=== PATIENT | female | born 1975 | race Caucasian/White ===

== ENCOUNTER 2017-01-19 15:53 | Emergency (ER) | payer OTHER, SELFPAY ==
[2017-01-19 16:14] LABS: Bilirubin Negative (Negative); Blood, Urine Trace (Negative); Clarity Clear (Clear); Glucose, Urine (Dipstick) Negative (Negative); Leukocyte Negative (Negative); Nitrite Negative (Negative); Protein, Urine (Dipstick) Negative (Neg-Trace); Urobilinogen 0.2 mg/dL (0.2-1.0)
[2017-01-19 16:18] LABS: Bacteria/HPF None Seen HPF (None Seen); Pregnancy Test - Urine (BHCG) NEGATIVE (NEGATIVE); Pregu Control Background? CLEAR/WHITE (CLR/WHITE); Pregu Control Bar Appear? YES (CONTROL BAR); RBC/HPF 0-3 HPF (0-3); Squamous Epithelial 0-3 HPF (0-3); WBC/HPF 0-3 HPF (0-3)
[2017-01-19] MEDS ORDERED: traMADol HCl 50 MG TAB ONE (16:21)
[2017-01-19] MEDS ORDERED: Ketorolac Tromethamine 60 MG/2 ML VIAL ONE (16:21)
== END 2017-01-19 16:37 | disposition home or self-care (01) ==
LOC: MADERS 15:53
DX: N20.0 Calculus of kidney (principal); R31.9 Hematuria, unspecified; F17.210 Nicotine dependence, cigarettes, uncomplicated
CPT/HCPCS: 81003; 81015; 81025; 96372; J1885

== ENCOUNTER 2017-04-12 11:52 | Outpatient (CLI) | payer OTHER ==
--- NOTE | 2017-04-12 16:15 | RAD ---
LUMBAR SPINE RADIOGRAPHS 3 VIEWS: DATE: 04/12/17. PROVIDED CLINICAL HISTORY: Back pain. FINDINGS: Four [id number] lumbar-type vertebral bodies were present with presumed sacralization of L5. L umbar alignment appears normal. Vertebral body heights appear preserved. Minimal degenerative disk changes are seen. Calcifications overlie the left kidney presumably reflecting renal calculi. IMPRESSION: 1. No evidence for an acute osseous abnormality. 2. Left nephrolithiasis. POS: [facility]
--- NOTE | 2017-04-12 16:45 | RAD ---
LEFT KNEE RADIOGRAPHS THREE VIEWS: Date: 04-12-17 Provided Clinical History: Left knee pain. FINDINGS: Post-operative changes of ACL reconstruction are demonstrated. There is no evidence for fracture or other acute osseous abnormality. Alignment appears anatomic. Joint spaces appear preserved. No evide nce for knee joint capsular distention. There is a 6 mm ossific focus which projects cephalad to the lateral aspect of the tibial eminence which could reflect an intraarticular body. IMPRESSION: 1. No evidence for acute osseous abnormality or significant arthropathy. 2. Possible intraarticular body. POS: [facility]
== END 2017-04-12 11:53 | disposition home or self-care (01) ==
LOC: MADRAD 11:52
PROVIDERS: ATTEND Family Medicine
DX: M25.562 Pain in left knee (principal); M46.1 Sacroiliitis, not elsewhere classified; N20.0 Calculus of kidney
CPT/HCPCS: 72100

== ENCOUNTER 2017-06-28 09:20 | Outpatient (CLI) | payer OTHER ==
[2017-06-28 10:02] LABS: #Basophils 0.1 thou/uL (0.0-0.2); #Eosinphils 0.2 thou/uL (0.0-0.7); #Lymphocytes 1.3 thou/uL (1.20-3.40); #Monocytes 0.4 thou/uL (0.11-0.59); #Neutrophils 5.6 thou/uL (1.40-6.50); %Basophils 0.8 % (0.0-1.0); %Eosinophils 2.3 % (0.0-10.0); %Lymphocytes 17.2 % (21.0-51.0); %Monocytes 5.3 % (0.0-10.0); %Neutrophils 74.4 % (42.0-75.0); Hemoglobin 14.2 g/dL (12.0-16.0); Mean Corpuscular HGB CONC 31.7 g/dL (32.0-36.0); Mean Corpuscular Hemoglobin 28.3 pg (27.0-31.0); Mean Corpuscular Volume 89.3 fl (81.0-99.0); Mean Platelet Volume 10.1 fL (7.4-10.4); Platelet Count 189 thou/uL (130-400); RBC Distribution Width 13.4 % (11.5-14.5); Red Blood Cell (RBC) Count 5.01 mill/uL (4.20-5.40); White Blood Cell (WBC) Count 7.5 thou/uL (4.8-10.8)
[2017-06-28 10:25] LABS: ALT (SGPT) 19 U/L (8-55); AST (SGOT) 18 U/L (5-34); Alkaline Phosphatase 79 U/L (40-150); Anion Gap 14 mmol/L (10-20); BUN (Urea Nitrogen) 6 mg/dL (7.0-18.7); Bilirubin, Total 0.5 mg/dL (0.2-1.2); Calc. Creatinine Clearance 0 mL/min (70-130); Carbon Dioxide 26 mmol/L (22-29); Chloride 104 mmol/L (98-107); Estimated GFR-MDRD 90; Globulin 2.8 g/dL (2.4-3.5); Glucose 107 mg/dL (70-105); Lipase 14 U/L (8-78); Potassium 3.5 mmol/L (3.5-5.1); Protein, Total 6.8 g/dL (6.0-8.3); Sodium 140 mmol/L (136-145)
== END 2017-06-28 09:21 | disposition home or self-care (01) ==
LOC: MADLABBHPM 09:20
PROVIDERS: ATTEND Family Medicine
DX: R10.13 Epigastric pain (principal)
CPT/HCPCS: 36415; 80053; 83690; 85025; 86677

== ENCOUNTER 2017-07-07 16:16 | Outpatient (CLI) | payer OTHER | END 2017-07-07 16:17 | disposition home or self-care (01) | LOC: MADEKG 16:16 | PROVIDERS: ATTEND Family Medicine | DX: R07.9 Chest pain, unspecified (principal); R00.1 Bradycardia, unspecified | CPT/HCPCS: 93005; 93010 ==

== ENCOUNTER 2018-02-14 09:36 | Emergency (ER) | payer OTHER ==
[2018-02-14] MEDS ORDERED: Ondansetron ODT 4 MG TAB ONE (10:04)
[2018-02-14 10:06] LABS: Clarity Clear (Clear)
[2018-02-14 10:12] LABS: Leukocyte Unable to Interpret (Negative)
[2018-02-14 10:13] LABS: Bilirubin Unable to Interpret (Negative); Glucose, Urine (Dipstick) Unable to Interpret mg/dL (Negative); Nitrite Unable to Interpret (Negative); Protein, Urine (Dipstick) Unable to Interpret mg/dL (Neg-Trace); Urobilinogen UNABLE TO INTERPRET mg/dL (0.2-1.0)
[2018-02-14 10:15] LABS: RBC/HPF 0-3 HPF (0-3)
[2018-02-14 10:16] LABS: Bacteria/HPF Rare-Few HPF (None Seen); Squamous Epithelial 0-3 HPF (0-3)
[2018-02-14 10:18] LABS: Pregnancy Test - Urine (BHCG) Negative (Negative); Pregu Control Bar Appear? YES (CONTROL BAR); Specific Gravity 1.013 (1.002-1.036)
[2018-02-14 10:19] LABS: Pregu Control Background? CLEAR/WHITE (CLR/WHITE)
[2018-02-14 10:26] LABS: Blood, Urine Negative (Negative)
--- NOTE | 2018-02-14 11:05 | CT ---
CT OF THE ABDOMEN AND PELVIS WIHTOUT IV CONTRAST: INDICATION: History of left lower quadrant abdominal pain and history of renal stones. COMPARISON: Prior CT dated 01/21/17. FINDINGS: The numerous nonobstructing calculi affecting both kidneys is stable. No hydronephrosis is evident. No definite ureteral calculus is noted. There is a complex cystic lesion involving the left adnexa that is difficult to characterize on the c urrent examination measuring 4.3 cm. The right kidney adnexa is unremarkable-appearing. No free fluid is evident. A small phlebolith is again seen within the lower hemipelvis bilaterally. The unopacified large and small bowel are normal-appearing. There is a normal appendix in the right lower quadrant. Lung bases are clear. Unopacified liver, spleen, pancreas, and adrenal glands are unremarkable. IMPRESSION: 1. Stable bilateral nephrolithiasis. 2. Complex cystic lesion involving the left adnexa. A pelvic ultrasound is recommended for further characterization. 3. Normal appendix. POS: [facility]
[2018-02-14 11:19] LABS: #Eosinphils 0.1 thou/uL (0.0-0.7); #Lymphocytes 1.3 thou/uL (1.20-3.40); #Monocytes 0.4 thou/uL (0.11-0.59); #Neutrophils 5.1 thou/uL (1.40-6.50); %Basophils 0.7 % (0.0-1.0); %Eosinophils 1.5 % (0.0-10.0); %Lymphocytes 19.3 % (21.0-51.0); %Monocytes 5.1 % (0.0-10.0); %Neutrophils 73.4 % (42.0-75.0); Hemoglobin 13.8 g/dL (12.0-16.0); Mean Corpuscular HGB CONC 33.1 g/dL (32.0-36.0); Mean Corpuscular Hemoglobin 28.8 pg (27.0-31.0); Mean Corpuscular Volume 86.9 fl (81.0-99.0); Mean Platelet Volume 9.7 fL (7.4-10.4); Platelet Count 184 thou/uL (130-400); RBC Distribution Width 12.6 % (11.5-14.5)
[2018-02-14 11:26] LABS: ALT (SGPT) 12 U/L (8-55); AST (SGOT) 13 U/L (5-34); Alkaline Phosphatase 56 U/L (40-150); Anion Gap 13 mmol/L (10-20); BUN (Urea Nitrogen) 9 mg/dL (7.0-18.7); Bilirubin, Total 0.2 mg/dL (0.2-1.2); Calc. Creatinine Clearance 0 mL/min (70-130); Calcium 9.1 mg/dL (7.8-10.44); Carbon Dioxide 26 mmol/L (22-29); Chloride 106 mmol/L (98-107); Estimated GFR-MDRD Greater than 90; Globulin 2.5 g/dL (2.4-3.5); Glucose 91 mg/dL (70-105); Potassium 3.9 mmol/L (3.5-5.1); Protein, Total 6.5 g/dL (6.0-8.3); Sodium 141 mmol/L (136-145)
--- NOTE | 2018-02-14 13:54 | ULT ---
ULTRASOUND PELVIC ULTRASOUND TRANSVAGINAL DOPPLER DUPLEX: 02/14/2018 HISTORY: A 42-year-old female with left lower quadrant/left pelvic pain. Complex left adnexal cystic lesion f ound on noncontrast CT earlier today. TECHNIQUE: Transabdominal transducer used to evaluate intrapelvic contents using the urinary bladder as an acous tic window. Endovaginal transducer used to visualize intrapelvic contents in greater detail. Color fl ow Doppler and Pulsed Doppler spectral waveform analysis of ovaries. FINDINGS: Uterus: 12 x 6 x 4.5 cm. Endometrial stripe: 17 mm (1.7 cm). Right ovary: Not visualized. Left ovary: Approximately 4.5 x 3 x 3 cm. Uterine leiomyoma (fibroid): A 3.5 x 2 cm mass at anterior myometrium, distorting the endometrial st ripe, at the upper body/fundus. A 2 x 2.5 cm subserosal mass at the posterior body. Incidentally, t here is a 1.5 x 1 cm cyst at the lower uterine segment. Blood flow: Flow is demonstrated in the left ovary. Ovarian cyst (defined as 2 cm or greater): There is a multiseptated cystic lesion in the left ovary, measured as 3 x 2.5 cm (4.[address]). Free fluid in the cul-de-sac: Small amount. IMPRESSION: 1. Multiseptated, complex left ovarian cyst. Recommend follow-up pelvic and transvaginal ultrasound in 6 weeks (at a different stage in the menstrual cycle). 2. Right ovary not visualized. 3. At least two uterine leiomyomata (fibroids). CORETTA Bautista POS: [facility]
== END 2018-02-14 13:25 | disposition home or self-care (01) ==
LOC: MADERS 09:36
DX: D25.9 Leiomyoma of uterus, unspecified (principal); N83.201 Unspecified ovarian cyst, right side; F17.210 Nicotine dependence, cigarettes, uncomplicated; Z87.442 Personal history of urinary calculi
CPT/HCPCS: 74176; 76856; 80053; 81003; 81015; 81025; 85025; Q0162

== ENCOUNTER 2018-07-31 07:39 | Emergency (ER) | payer OTHER ==
[2018-07-31] MEDS ORDERED: Azithromycin 250 MG TAB ONE (09:21)
--- NOTE | 2018-07-31 09:21 | RAD ---
PORTABLE RIGHT KNEE 4 VIEWS: HISTORY: Injury, right knee pain. FINDINGS/IMPRESSION: No acute fracture or dislocation is identified. POS: [facility]
--- NOTE | 2018-07-31 09:22 | RAD ---
PORTABLE CHEST 1 VIEW: DATE: 07/31/18. TIME: 8:36 a.m. HISTORY: Cough. FINDINGS: Comparison is made with the exam of 09/27/16. The heart size is normal. The lungs are expanded without lobar consolidation, pneumothoraces, or ple ural effusions. IMPRESSION: No radiographic evidence of acute cardiopulmonary process. POS: [facility]
== END 2018-07-31 09:30 | disposition home or self-care (01) ==
LOC: MADERS 07:39
DX: S83.91XA Sprain of unspecified site of right knee, initial encounter (principal); J20.9 Acute bronchitis, unspecified; F17.210 Nicotine dependence, cigarettes, uncomplicated; Z87.442 Personal history of urinary calculi; X58.XXXA Exposure to other specified factors, initial encounter
CPT/HCPCS: 71045

== ENCOUNTER 2018-09-14 15:51 | Emergency (ER) | payer OTHER | END 2018-09-14 16:51 | disposition home or self-care (01) | LOC: MADERS 15:51 | DX: S53.401A Unspecified sprain of right elbow, initial encounter (principal); S56.911A Strain of unspecified muscles, fascia and tendons at forearm level, right arm, initial encounter; F17.210 Nicotine dependence, cigarettes, uncomplicated; Z79.899 Other long term (current) drug therapy | CPT/HCPCS: 99406 ==

== ENCOUNTER 2019-01-16 15:02 | Emergency (ER) | payer OTHER ==
[2019-01-16 15:41] LABS: Bilirubin Negative (Negative); Blood, Urine Moderate (Negative); Clarity Hazy (Clear); Glucose, Urine (Dipstick) Negative (Negative); Leukocyte Negative (Negative); Nitrite Negative (Negative); Protein, Urine (Dipstick) Negative (Neg-Trace); Specific Gravity, Urine 1.015 (1.005-1.030); Urobilinogen 0.2 mg/dL (0.2-1.0)
[2019-01-16 15:42] LABS: Bacteria/HPF Rare-Few HPF (None Seen); Squamous Epithelial 0-3 HPF (0-3); WBC/HPF 0-3 HPF (0-3)
[2019-01-16] MEDS ORDERED: Prochlorperazine 10 MG/2 ML VIAL ONE (16:43)
[2019-01-16] MEDS ORDERED: Ketorolac Tromethamine 30 MG/ML VIAL ONE (16:43)
[2019-01-16] MEDS ORDERED: Tamsulosin HCl 0.4 MG CAP ONE (16:43)
[2019-01-16 17:09] LABS: #Basophils 0.1 thou/uL (0.0-0.2); #Eosinphils 0.3 thou/uL (0.0-0.7); #Lymphocytes 2.3 thou/uL (1.20-3.40); #Monocytes 0.4 thou/uL (0.11-0.59); #Neutrophils 6.5 thou/uL (1.40-6.50); %Basophils 0.8 % (0.0-1.0); %Eosinophils 2.7 % (0.0-10.0); %Monocytes 4.1 % (0.0-10.0); %Neutrophils 68.3 % (42.0-75.0); Hemoglobin 14.8 g/dL (12.0-16.0); Mean Corpuscular HGB CONC 31.8 g/dL (32.0-36.0); Mean Corpuscular Hemoglobin 27.9 pg (27.0-31.0); Mean Corpuscular Volume 87.7 fL (78.0-98.0); Mean Platelet Volume 9.9 fL (7.4-10.4); Platelet Count 223 thou/uL (130-400); Red Blood Cell (RBC) Count 5.31 mill/uL (4.20-5.40); White Blood Cell (WBC) Count 9.5 thou/uL (4.8-10.8)
--- NOTE | 2019-01-16 17:17 | CT ---
NONCONTRAST AND PELVIC CT 01/16/19 COMPARISON: 02/14/18. CLINICAL INDICATION: Right costovertebral angle pain. History of past obstruction and urolithiasis. FINDINGS: Numerous bilateral renal calculi are redemonstrated without overt hydronephrosis or hydroureter. Prio r complex left adnexal cystic lesion is note visualized. There is colonic diverticulosis. The solid a bdominal organs, bowel, lymph nodes and vasculature are limited without the presence of IV or enteric contrast. The visualized lung bases are clear. There is no acute osseous pathology. Evaluation otherwise grossly stable. IMPRESSION: Redemonstration of multifocal bilateral nonobstructive nephrolithiasis. POS: [facility]
[2019-01-16 17:23] LABS: ALT (SGPT) 12 U/L (8-55); AST (SGOT) 12 U/L (5-34); Albumin 4.6 g/dL (3.5-5.0); Alkaline Phosphatase 68 U/L (40-150); Anion Gap 14 mmol/L (10-20); BUN (Urea Nitrogen) 10 mg/dL (7.0-18.7); Bilirubin, Total 0.3 mg/dL (0.2-1.2); Calc. Creatinine Clearance 0 mL/min (70-130); Calcium 10.2 mg/dL (7.8-10.44); Carbon Dioxide 27 mmol/L (22-29); Chloride 105 mmol/L (98-107); Estimated GFR-MDRD 86; Globulin 2.9 g/dL (2.4-3.5); Glucose 81 mg/dL (70-105); Potassium 4.1 mmol/L (3.5-5.1); Protein, Total 7.5 g/dL (6.0-8.3); Sodium 142 mmol/L (136-145)
== END 2019-01-16 17:45 | disposition home or self-care (01) ==
LOC: MADERS 15:02
DX: N20.0 Calculus of kidney (principal); F17.210 Nicotine dependence, cigarettes, uncomplicated; Z79.899 Other long term (current) drug therapy
CPT/HCPCS: 36415; 74176; 80053; 81003; 81015; 85025; 96372; J0780; J1885

== ENCOUNTER 2019-06-11 23:47 | Emergency (ER) | payer OTHER ==
[2019-06-12 00:19] LABS: Bilirubin Negative (Negative); Blood, Urine Trace (Negative); Clarity Clear (Clear); Glucose, Urine (Dipstick) Negative (Negative); Leukocyte Negative (Negative); Nitrite Negative (Negative); Protein, Urine (Dipstick) Negative (Neg-Trace); Urobilinogen 0.2 mg/dL (Less than 2)
[2019-06-12 00:25] LABS: #Basophils 0.1 thou/uL (0.0-0.2); #Eosinphils 0.2 thou/uL (0.0-0.7); #Lymphocytes 2.5 thou/uL (1.20-3.40); #Monocytes 0.2 thou/uL (0.11-0.59); #Neutrophils 5.9 thou/uL (1.40-6.50); %Basophils 0.6 % (0.0-1.0); %Eosinophils 2.3 % (0.0-10.0); %Monocytes 2.4 % (0.0-10.0); %Neutrophils 66.6 % (42.0-75.0); Hemoglobin 14.5 g/dL (12.0-16.0); Mean Corpuscular HGB CONC 33.3 g/dL (32.0-36.0); Mean Corpuscular Hemoglobin 27.9 pg (27.0-31.0); Mean Corpuscular Volume 83.9 fL (78.0-98.0); Mean Platelet Volume 8.9 fL (7.4-10.4); Platelet Count 204 thou/uL (130-400); RBC Distribution Width 12.6 % (11.5-14.5); White Blood Cell (WBC) Count 8.9 thou/uL (4.8-10.8)
[2019-06-12 00:26] LABS: Bacteria/HPF None Seen HPF (None Seen); Squamous Epithelial 0-3 HPF (0-3); WBC/HPF 0-3 HPF (0-3)
[2019-06-12 00:43] LABS: ALT (SGPT) 15 U/L (8-55); AST (SGOT) 14 U/L (5-34); Albumin 4.4 g/dL (3.5-5.0); Alkaline Phosphatase 63 U/L (40-150); Anion Gap 14 mmol/L (10-20); BUN (Urea Nitrogen) 11 mg/dL (7.0-18.7); Bilirubin, Total 0.3 mg/dL (0.2-1.2); Calc. Creatinine Clearance 0 mL/min (70-130); Calcium 9.6 mg/dL (7.8-10.44); Carbon Dioxide 26 mmol/L (22-29); Chloride 104 mmol/L (98-107); Estimated GFR-MDRD 85; Globulin 2.8 g/dL (2.4-3.5); Glucose 98 mg/dL (70-105); Protein, Total 7.2 g/dL (6.0-8.3); Sodium 140 mmol/L (136-145)
[2019-06-12 00:56] LABS: BHCG - Serum Negative (NEGATIVE); Pregs Control Background? CLEAR/WHITE (CLR/WHITE); Pregs Control Bar Appear? YES (CONTROL BAR)
[2019-06-12] MEDS ORDERED: Morphine 4 MG/ML VIAL ONE (01:04)
[2019-06-12] MEDS ORDERED: Ketorolac Tromethamine 30 MG/ML VIAL ONE (01:05)
--- NOTE | 2019-06-12 06:52 | CT ---
CT ABDOMEN AND PELVIS WITHOUT CONTRAST: INDICATIONS: Left flank pain. COMPARISON: 01/16/2019 FINDINGS: The liver, spleen, and pancreas are unremarkable. Numerous nonobstructing calculi in the upper collecting structures of both kidneys. There are bilate ral medullary calcifications, indicating medullary nephrocalcinosis, suggesting medullary sponge kidn ey. There is a 5 mm calculus in the proximal left ureter, producing mild left hydronephrosis. The right ureter is normal. The bowel loops are unremarkable. No other acute finding. IMPRESSION: 1. A 5 to 6 mm calculus in the proximal left ureter, producing mild left hydronephrosis. 2. Bilateral nonobstructing calculi in the upper collecting structures of both kidneys. Medullary n ephrocalcinosis, suggesting medullary sponge kidney. These renal calcifications are stable in appear ance from prior examination. POS: [facility]
== END 2019-06-12 04:18 | disposition home or self-care (01) ==
LOC: MADERS 23:47
DX: N13.2 Hydronephrosis with renal and ureteral calculous obstruction (principal); F17.210 Nicotine dependence, cigarettes, uncomplicated
CPT/HCPCS: 36415; 74176; 80053; 81001; 83690; 84703; 85025; 96372; 99284; J1885; J2270

== ENCOUNTER 2019-06-30 21:49 | Emergency (ER) | payer OTHER ==
[2019-06-30 22:30] LABS: Bilirubin Negative (Negative); Blood, Urine Moderate (Negative); Clarity Clear (Clear); Glucose, Urine (Dipstick) Negative (Negative); Leukocyte Negative (Negative); Nitrite Negative (Negative); Protein, Urine (Dipstick) Negative (Neg-Trace); Urobilinogen 0.2 mg/dL (Less than 2)
[2019-06-30 22:33] LABS: Pregnancy Test - Urine (BHCG) Negative (Negative); Pregu Control Background? CLEAR/WHITE (CLR/WHITE); Pregu Control Bar Appear? YES (CONTROL BAR)
[2019-06-30 22:35] LABS: Bacteria/HPF 1+ HPF (None Seen)
[2019-06-30] MEDS ORDERED: Sodium Chloride 0.9% 1,000 ML ONE ×2 (22:51→23:46)
[2019-06-30] MEDS ORDERED: Ketorolac Tromethamine 30 MG/ML VIAL ONE (22:51)
[2019-06-30] MEDS ORDERED: Ondansetron PF 4 MG/2 ML Vial ONE (22:51)
--- NOTE | 2019-06-30 22:56 | CT ---
CT Stone Protocol History: Abdominal pain Comparison: Stone protocol 06/12/2019 Findings: Lung bases are clear. No pericardial effusion. Spleen is unremarkable. Nephrocalcinosis erickson aterally. There is unchanged position of the 6 mm calculus proximal left ureter at the ureteropelvic junction. Mild left hydroureter arthrosis. Remainder the left ureter is unremarkable. No calculi within the urinary bladder. Appendix is visualized and is normal. Noncontrast evaluation of the liver, pancreas, gallbladder are unremarkable. No retroperitoneal periaortic adenopathy. Impression: 1. Unchanged left ureteropelvic junction 5-6 mm calculus causing mild left hydronephrosis. 2. 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 Hyperparathyroidism and renal tubular acidosis can have similar findings.
[2019-06-30 23:11] LABS: Band 1 % (5-11); Eosinophils 2 % (0-10); Lymphocytes 18 % (21-51); MDiff Complete? YES; Mean Corpuscular HGB CONC 32.8 g/dL (32.0-36.0); Mean Corpuscular Hemoglobin 27.4 pg (27.0-31.0); Mean Corpuscular Volume 83.5 fL (78.0-98.0); Mean Platelet Volume 7.9 fL (7.4-10.4); Monocytes 5 % (0-10); Neutrophil 69 % (42-75); Platelet Count 194 thou/uL (130-400); Platelet Morphology Comment Appears Adequate; RBC Distribution Width 12.5 % (11.5-14.5); RBC Morphology Normal; Reactive Lymphocytes 5 % (0-10); Red Blood Cell (RBC) Count 5.12 mill/uL (4.20-5.40); White Blood Cell (WBC) Count 7.8 thou/uL (4.8-10.8)
[2019-06-30 23:12] LABS: ALT (SGPT) 10 U/L (8-55); AST (SGOT) 15 U/L (5-34); Albumin 4.4 g/dL (3.5-5.0); Alkaline Phosphatase 60 U/L (40-150); Anion Gap 17 mmol/L (10-20); BUN (Urea Nitrogen) 8 mg/dL (7.0-18.7); Bilirubin, Total 0.5 mg/dL (0.2-1.2); Calc. Creatinine Clearance 0 mL/min (70-130); Calcium 9.5 mg/dL (7.8-10.44); Carbon Dioxide 23 mmol/L (22-29); Chloride 105 mmol/L (98-107); Estimated GFR-MDRD 85; Globulin 2.7 g/dL (2.4-3.5); Glucose 94 mg/dL (70-105); Potassium 3.8 mmol/L (3.5-5.1); Protein, Total 7.1 g/dL (6.0-8.3); Sodium 141 mmol/L (136-145)
[2019-06-30] MEDS ORDERED: Morphine 4 MG/ML VIAL ONE (23:46)
[2019-06-30] MEDS ORDERED: cefTRIAXone\\ROCEPHIN 1 GM VIAL ONE (23:46)
== END 2019-07-01 00:18 | disposition short-term general hospital (02) ==
LOC: MADERS 21:49
DX: N13.2 Hydronephrosis with renal and ureteral calculous obstruction (principal); F17.210 Nicotine dependence, cigarettes, uncomplicated; Z79.899 Other long term (current) drug therapy
CPT/HCPCS: 74176; 80053; 81003; 81015; 81025; 85025; 94760; 96361; 96374; 96375; J0696; J1885; J2270; J2405; J7050

== ENCOUNTER 2019-07-27 09:04 | Emergency (ER) | payer OTHER ==
[2019-07-27] MEDS ORDERED: Ondansetron ODT 4 MG TAB ONE (09:44)
[2019-07-27] MEDS ORDERED: predniSONE 20 MG TAB ONE (09:44)
== END 2019-07-27 10:23 | disposition home or self-care (01) ==
LOC: MADERS 09:04
DX: L50.0 Allergic urticaria (principal); T36.8X5A Adverse effect of other systemic antibiotics, initial encounter; F17.210 Nicotine dependence, cigarettes, uncomplicated; Z79.899 Other long term (current) drug therapy
CPT/HCPCS: 96372; 99283; J1040; J7512; Q0162

== ENCOUNTER 2020-10-02 14:01 | Emergency (ER) | payer OTHER ==
[2020-10-02] MEDS ORDERED: Boostrix 0.5 ML (Tdap) VIAL ONE (15:57)
== END 2020-10-02 16:10 | disposition home or self-care (01) ==
LOC: MADERS 14:01
DX: T22.211A Burn of second degree of right forearm, initial encounter (principal); F32.9 Major depressive disorder, single episode, unspecified; F17.210 Nicotine dependence, cigarettes, uncomplicated; Z79.899 Other long term (current) drug therapy; Z87.442 Personal history of urinary calculi; X11.8XXA Contact with other hot tap-water, initial encounter
CPT/HCPCS: 16020; 90471; 90715

== ENCOUNTER 2021-02-21 17:26 | Emergency (ER) | payer BC, OTHER ==
[2021-02-21 17:53] LABS: Bilirubin Negative (Negative); Blood, Urine Large (Negative); Glucose, Urine (Dipstick) Negative (Negative); Ketone, Urine Negative (Negative); Leukocyte Negative (Negative); Nitrite Negative (Negative); Protein, Urine (Dipstick) Negative (Neg-Trace); Urobilinogen 0.2 mg/dL (Less than 2)
[2021-02-21 17:58] LABS: Clarity Slightly Cloudy (Clear)
[2021-02-21 17:59] LABS: Bacteria/HPF 1+ HPF (None Seen); RBC/HPF Greater than 50 HPF (0-3); Specific Gravity, Urine 1.018 (1.002-1.036); Squamous Epithelial 0-3 HPF (0-3)
[2021-02-21] MEDS ORDERED: Morphine 4 MG/ML VIAL ONE (18:07)
[2021-02-21 18:08] LABS: #Basophils 0.1 thou/uL (0.0-0.2); #Eosinphils 0.3 thou/uL (0.0-0.7); #Lymphocytes 1.9 thou/uL (1.20-3.40); #Monocytes 0.3 thou/uL (0.11-0.59); #Neutrophils 6.9 thou/uL (1.40-6.50); %Basophils 0.8 % (0.0-1.0); %Eosinophils 3.3 % (0.0-10.0); %Lymphocytes 19.9 % (21.0-51.0); %Monocytes 3.3 % (0.0-10.0); %Neutrophils 72.7 % (42.0-75.0); Hemoglobin 14.6 g/dL (12.0-16.0); Mean Corpuscular HGB CONC 30.9 g/dL (32.0-36.0); Mean Corpuscular Hemoglobin 27.7 pg (27.0-31.0); Mean Corpuscular Volume 89.8 fL (78.0-98.0); Mean Platelet Volume 9.7 fL (7.4-10.4); Platelet Count 211 thou/uL (130-400); RBC Distribution Width 13.1 % (11.5-14.5); Red Blood Cell (RBC) Count 5.26 mill/uL (4.20-5.40); White Blood Cell (WBC) Count 9.5 thou/uL (4.8-10.8)
[2021-02-21] MEDS ORDERED: Morphine 2 MG/ML VIAL ONE (18:08)
[2021-02-21 18:15] LABS: BHCG - Serum Negative (NEGATIVE); Pregs Control Background? CLEAR/WHITE (CLR/WHITE); Pregs Control Bar Appear? YES (CONTROL BAR)
[2021-02-21 18:23] LABS: ALT (SGPT) 20 U/L (8-55); AST (SGOT) 16 U/L (5-34); Albumin 4.2 g/dL (3.5-5.0); Alkaline Phosphatase 69 U/L (40-110); Anion Gap 13 mmol/L (10-20); BUN (Urea Nitrogen) 8 mg/dL (7.0-18.7); Bilirubin, Total 0.3 mg/dL (0.2-1.2); Calc. Creatinine Clearance 0 mL/min (70-130); Carbon Dioxide 26 mmol/L (22-29); Chloride 103 mmol/L (98-107); Globulin 2.7 g/dL (2.4-3.5); Glucose 121 mg/dL (70-105); Lipase 22 U/L (8-78); Potassium 3.8 mmol/L (3.5-5.1); Protein, Total 6.9 g/dL (6.0-8.3); Sodium 138 mmol/L (136-145)
[2021-02-21] MEDS ORDERED: Ketorolac Tromethamine 30 MG/ML VIAL ONE (18:38)
[2021-02-21] MEDS ORDERED: cefTRIAXone\\ROCEPHIN 1 GM VIAL ONE (18:45)
== END 2021-02-21 19:13 | disposition home or self-care (01) ==
LOC: MADERS 17:26
DX: N20.0 Calculus of kidney (principal); F17.210 Nicotine dependence, cigarettes, uncomplicated
CPT/HCPCS: 74176; 80053; 81001; 83690; 84703; 85025; 87086; 96374; 96375; J0696; J1885; J2270

== ENCOUNTER 2021-02-25 08:14 | Emergency (ER) | payer BC ==
[2021-02-25 08:49] LABS: Bilirubin Negative (Negative); Blood, Urine Small (Negative); Clarity Clear (Clear); Glucose, Urine (Dipstick) Negative (Negative); Ketone, Urine Negative (Negative); Leukocyte Negative (Negative); Nitrite Negative (Negative); Protein, Urine (Dipstick) Negative (Neg-Trace); Urobilinogen 0.2 mg/dL (Less than 2)
[2021-02-25 08:55] LABS: Bacteria/HPF Rare-Few HPF (None Seen); WBC/HPF 0-3 HPF (0-3)
[2021-02-25 09:05] LABS: Anion Gap 14 mmol/L (10-20); BUN (Urea Nitrogen) 14 mg/dL (7.0-18.7); Calc. Creatinine Clearance 0 mL/min (70-130); Calcium 9.2 mg/dL (7.8-10.44); Carbon Dioxide 26 mmol/L (22-29); Chloride 104 mmol/L (98-107); Glucose 96 mg/dL (70-105); Potassium 4.5 mmol/L (3.5-5.1); Sodium 139 mmol/L (136-145)
[2021-02-25] MEDS ORDERED: Ketorolac Tromethamine 30 MG/ML VIAL ONE (09:25)
== END 2021-02-25 09:30 | disposition home or self-care (01) ==
LOC: MADERS 08:14
DX: N20.9 Urinary calculus, unspecified (principal); F17.210 Nicotine dependence, cigarettes, uncomplicated; Z87.442 Personal history of urinary calculi; Z79.899 Other long term (current) drug therapy
CPT/HCPCS: 80048; 81003; 81015; 96372; 99284; J1885

== ENCOUNTER 2021-06-24 20:26 | Emergency (ER) | payer BC | END 2021-06-24 20:50 | disposition home or self-care (01) | LOC: MADERS 20:26 | DX: I80.01 Phlebitis and thrombophlebitis of superficial vessels of right lower extremity (principal); Z71.6 Tobacco abuse counseling; F17.210 Nicotine dependence, cigarettes, uncomplicated; Z87.442 Personal history of urinary calculi | CPT/HCPCS: 99406 ==

== ENCOUNTER 2021-08-16 18:30 | Emergency (ER) | payer BC ==
[2021-08-16] MEDS ORDERED: Albuterol 200 PUFF (6.7GM INHALER) ONE (20:23)
[2021-08-16] MEDS ORDERED: predniSONE 10 MG TAB ONE (20:24)
[2021-08-16] MEDS ORDERED: predniSONE 20 MG TAB ONE (20:24)
== END 2021-08-16 20:50 | disposition home or self-care (01) ==
LOC: MADERS 18:30
DX: J44.1 Chronic obstructive pulmonary disease with (acute) exacerbation (principal); F17.210 Nicotine dependence, cigarettes, uncomplicated
CPT/HCPCS: 71045; J7512

== ENCOUNTER 2021-09-10 07:51 | Outpatient (CLI) | payer BC | END 2021-09-10 07:52 | disposition home or self-care (01) | LOC: MADULT 07:51 | PROVIDERS: ATTEND Family Medicine | DX: R10.32 Left lower quadrant pain (principal); R05.9 Cough, unspecified; Z98.890 Other specified postprocedural states | CPT/HCPCS: 76999 ==

== ENCOUNTER 2022-02-04 08:00 | Emergency (ER) | payer BC ==
[2022-02-04 08:48] LABS: #Basophils 0.1 thou/uL (0.0-0.2); #Eosinphils 0.1 thou/uL (0.0-0.7); #Lymphocytes 1.3 thou/uL (1.20-3.40); #Monocytes 0.5 thou/uL (0.11-0.59); #Neutrophils 5.8 thou/uL (1.40-6.50); %Basophils 0.8 % (0.0-1.0); %Eosinophils 1.8 % (0.0-10.0); %Lymphocytes 16.5 % (21.0-51.0); %Monocytes 5.8 % (0.0-10.0); Hemoglobin 15.3 g/dL (12.0-16.0); Mean Corpuscular HGB CONC 32.1 g/dL (32.0-36.0); Mean Corpuscular Hemoglobin 27.1 pg (27.0-31.0); Mean Corpuscular Volume 84.3 fL (78.0-98.0); Mean Platelet Volume 8.7 fL (7.4-10.4); Platelet Count 185 thou/uL (130-400); RBC Distribution Width 11.9 % (11.5-14.5); Red Blood Cell (RBC) Count 5.66 mill/uL (4.20-5.40); White Blood Cell (WBC) Count 7.7 thou/uL (4.8-10.8)
[2022-02-04] MEDS ORDERED: Nitroglycerin 2% Ointment 1 INCH/1 GM Packet ONE (08:57)
[2022-02-04] MEDS ORDERED: Aspirin 325 MG TAB ONE (08:57)
[2022-02-04 09:00] LABS: ALT (SGPT) 18 U/L (8-55); AST (SGOT) 17 U/L (5-34); Albumin 4.4 g/dL (3.5-5.0); Alkaline Phosphatase 59 U/L (40-110); Anion Gap 17 mmol/L (10-20); BUN (Urea Nitrogen) 13 mg/dL (7.0-18.7); Bilirubin, Total 0.6 mg/dL (0.2-1.2); Calc. Creatinine Clearance 0 mL/min (70-130); Calcium 9.3 mg/dL (7.8-10.44); Carbon Dioxide 21 mmol/L (22-29); Chloride 104 mmol/L (98-107); Globulin 2.4 g/dL (2.4-3.5); Glucose 98 mg/dL (70-105); Potassium 3.9 mmol/L (3.5-5.1); Protein, Total 6.8 g/dL (6.0-8.3); Sodium 138 mmol/L (136-145)
== END 2022-02-04 10:21 | disposition short-term general hospital (02) ==
LOC: MADERS 08:00
DX: I20.0 Unstable angina (principal); J44.9 Chronic obstructive pulmonary disease, unspecified; F17.210 Nicotine dependence, cigarettes, uncomplicated; Z79.51 Long term (current) use of inhaled steroids; Z86.16 Personal history of COVID-19
CPT/HCPCS: 71045; 80053; 84484; 85025; 85379; 93005

== ENCOUNTER 2023-02-26 22:54 | Emergency (ER) | payer BC ==
[2023-02-26] MEDS ORDERED: Ketorolac Tromethamine 30 MG/ML VIAL ONE (23:58)
[2023-02-26] MEDS ORDERED: Sodium Chloride 0.9% 1,000 ML ONE (23:58)
[2023-02-27] MEDS ORDERED: Ondansetron ODT 4 MG TAB ONE (00:04)
== END 2023-02-27 01:05 | disposition home or self-care (01) ==
LOC: MADERS 22:54
DX: N13.2 Hydronephrosis with renal and ureteral calculous obstruction (principal); E78.00 Pure hypercholesterolemia, unspecified; J44.9 Chronic obstructive pulmonary disease, unspecified; F17.210 Nicotine dependence, cigarettes, uncomplicated; Z79.899 Other long term (current) drug therapy
CPT/HCPCS: 74176; 96374; J1885; J7050; Q0162

== ENCOUNTER 2023-03-08 08:48 | Emergency (ER) | payer BC ==
[2023-03-08] MEDS ORDERED: Ketorolac Tromethamine 30 MG/ML VIAL ONE (09:05)
[2023-03-08] MEDS ORDERED: Ondansetron ODT 4 MG TAB ONE (09:05)
[2023-03-08 09:07] LABS: Bilirubin Negative (Negative); Blood, Urine Small (Negative); Clarity Clear (Clear); Glucose, Urine (Dipstick) Negative (Negative); Ketone, Urine Negative (Negative); Leukocyte Negative (Negative); Nitrite Negative (Negative); Protein, Urine (Dipstick) Negative (Neg-Trace); Specific Gravity, Urine 1.025 (1.005-1.030); Urobilinogen 0.2 mg/dL (Less than 2)
[2023-03-08 09:15] LABS: Bacteria/HPF Rare-Few HPF (None Seen); Squamous Epithelial 0-3 HPF (0-3); WBC/HPF 0-3 HPF (0-3)
== END 2023-03-08 09:48 | disposition home or self-care (01) ==
LOC: MADERS 08:48
DX: N13.2 Hydronephrosis with renal and ureteral calculous obstruction (principal); E78.00 Pure hypercholesterolemia, unspecified; J44.9 Chronic obstructive pulmonary disease, unspecified; F17.210 Nicotine dependence, cigarettes, uncomplicated; Z79.899 Other long term (current) drug therapy
CPT/HCPCS: 81003; 81015; 96372; 99284; J1885; Q0162

== ENCOUNTER 2023-03-17 20:49 | Emergency (ER) | payer BC ==
[2023-03-17] MEDS ORDERED: Ketorolac Tromethamine 30 MG/ML VIAL ONE (21:16)
[2023-03-17] MEDS ORDERED: Sodium Chloride 0.9% 1,000 ML ONE (21:16)
[2023-03-17 21:18] LABS: Bilirubin Negative (Negative); Blood, Urine Small (Negative); Clarity Clear (Clear); Glucose, Urine (Dipstick) Negative (Negative); Ketone, Urine Negative (Negative); Leukocyte Negative (Negative); Nitrite Negative (Negative); Protein, Urine (Dipstick) Negative (Neg-Trace); Specific Gravity, Urine 1.015 (1.005-1.030); Urobilinogen 0.2 mg/dL (Less than 2); pH, Urine 6.5 (5.0-9.0)
[2023-03-17 21:20] LABS: #Eosinphils 0.2 thou/uL (0.0-0.7); #Lymphocytes 1.7 thou/uL (1.20-3.40); #Monocytes 0.2 thou/uL (0.11-0.59); #Neutrophils 5.9 thou/uL (1.40-6.50); %Basophils 0.5 % (0.0-1.0); %Eosinophils 2.2 % (0.0-10.0); %Lymphocytes 21.7 % (21.0-51.0); %Monocytes 2.3 % (0.0-10.0); %Neutrophils 73.3 % (42.0-75.0); Hemoglobin 14.3 g/dL (12.0-16.0); Mean Corpuscular HGB CONC 33.6 g/dL (32.0-36.0); Mean Corpuscular Hemoglobin 29.4 pg (27.0-31.0); Mean Corpuscular Volume 87.3 fl (78.0-98.0); Mean Platelet Volume 10.3 fL (7.4-10.4); Platelet Count 191 10x3/uL (130-400); RBC Distribution Width 13.3 % (11.5-14.5); Red Blood Cell (RBC) Count 4.86 mill/uL (4.20-5.40)
[2023-03-17 21:23] LABS: Bacteria/HPF Rare-Few HPF (None Seen); Squamous Epithelial 0-3 HPF (0-3); Transitional Epithelial 0-3 HPF (None Seen); WBC/HPF 0-3 HPF (0-3)
[2023-03-17 21:31] LABS: BHCG - Serum Negative (NEGATIVE); Pregs Control Background? CLEAR/WHITE (CLR/WHITE); Pregs Control Bar Appear? YES (CONTROL BAR)
[2023-03-17 21:40] LABS: ALT (SGPT) 11 U/L (8-55); AST (SGOT) 16 U/L (5-34); Albumin 4.2 g/dL (3.5-5.0); Alkaline Phosphatase 76 U/L (40-110); Anion Gap 17 mmol/L (10-20); BUN (Urea Nitrogen) 15 mg/dL (7.0-18.7); Bilirubin, Total 0.4 mg/dL (0.2-1.2); Calc. Creatinine Clearance 0 mL/min (70-130); Calcium 9.6 mg/dL (7.8-10.44); Carbon Dioxide 20 mmol/L (22-29); Chloride 105 mmol/L (98-107); Estimated GFR 95; Glucose 118 mg/dL (70-105); Potassium 3.9 mmol/L (3.5-5.1); Protein, Total 7.2 g/dL (6.0-8.3); Sodium 138 mmol/L (136-145)
== END 2023-03-17 22:45 | disposition home or self-care (01) ==
LOC: MADERS 20:49
DX: N20.1 Calculus of ureter (principal); N13.30 Unspecified hydronephrosis; E78.00 Pure hypercholesterolemia, unspecified; F17.210 Nicotine dependence, cigarettes, uncomplicated
CPT/HCPCS: 74176; 80053; 81003; 81015; 84703; 85025; 87086; 96374; J1885; J7050

== ENCOUNTER 2024-03-20 19:18 | Emergency (ER) | payer BC | END 2024-03-20 20:05 | disposition short-term general hospital (02) | LOC: MADERS 19:18 | DX: K08.89 Other specified disorders of teeth and supporting structures (principal); R68.84 Jaw pain; F17.210 Nicotine dependence, cigarettes, uncomplicated; E78.00 Pure hypercholesterolemia, unspecified; J44.9 Chronic obstructive pulmonary disease, unspecified; Z79.899 Other long term (current) drug therapy | CPT/HCPCS: 99284 ==

== ENCOUNTER 2024-05-12 11:40 | Emergency (ER) | payer BC ==
[2024-05-12] MEDS ORDERED: Amoxicillin/Potassium Clav 875 MG TAB ONE (12:28)
== END 2024-05-12 12:36 | disposition home or self-care (01) ==
LOC: MADERS 11:40
DX: K02.9 Dental caries, unspecified (principal)
CPT/HCPCS: 99282

== ENCOUNTER 2024-05-19 19:37 | Emergency (ER) | payer BC ==
[2024-05-19 20:05] LABS: #Basophils 0.1 thou/uL (0.0-0.2); #Eosinphils 0.7 thou/uL (0.0-0.7); #Lymphocytes 2.1 thou/uL (1.20-3.40); #Monocytes 0.2 thou/uL (0.11-0.59); #Neutrophils 5.3 thou/uL (1.40-6.50); %Basophils 0.7 % (0.0-1.0); %Eosinophils 8.9 % (0.0-10.0); %Lymphocytes 24.9 % (21.0-51.0); %Monocytes 2.4 % (0.0-10.0); %Neutrophils 63.2 % (42.0-75.0); Hematocrit 43.4 % (36.0-47.0); Hemoglobin 13.4 g/dL (12.0-16.0); Mean Corpuscular HGB CONC 30.9 g/dL (32.0-36.0); Mean Corpuscular Hemoglobin 27.3 pg (27.0-31.0); Mean Corpuscular Volume 88.3 fl (78.0-98.0); Mean Platelet Volume 8.5 fL (7.4-10.4); Platelet Count 189 10x3/uL (130-400); RBC Distribution Width 13.7 % (11.5-14.5); Red Blood Cell (RBC) Count 4.91 mill/uL (4.20-5.40); White Blood Cell (WBC) Count 8.4 10x3/uL (4.8-10.8)
[2024-05-19 20:24] LABS: Troponin I Less than 0.010 ng/mL (< 0.028)
[2024-05-19 20:25] LABS: ALT (SGPT) 17 U/L (8-55); AST (SGOT) 16 U/L (5-34); Albumin 4.3 g/dL (3.5-5.0); Alkaline Phosphatase 70 U/L (40-110); Anion Gap 18 mmol/L (10-20); BUN (Urea Nitrogen) 5 mg/dL (7.0-18.7); Bilirubin, Total 0.4 mg/dL (0.2-1.2); Calc. Creatinine Clearance 0 mL/min (70-130); Calcium 9.6 mg/dL (7.8-10.44); Carbon Dioxide 22 mmol/L (22-29); Chloride 103 mmol/L (98-107); Estimated GFR 96; Globulin 2.1 g/dL (2.4-3.5); Glucose 103 mg/dL (70-105); Lipase 17 U/L (8-78); Magnesium 1.9 mg/dL (1.6-2.6); Potassium 3.7 mmol/L (3.5-5.1); Protein, Total 6.4 g/dL (6.0-8.3); Sodium 139 mmol/L (136-145)
[2024-05-19 22:59] LABS: Troponin I Less than 0.010 ng/mL (< 0.028)
== END 2024-05-19 23:23 | disposition home or self-care (01) ==
LOC: MADERS 19:37
DX: R07.89 Other chest pain (principal); J44.9 Chronic obstructive pulmonary disease, unspecified; F17.210 Nicotine dependence, cigarettes, uncomplicated; F32.A Depression, unspecified; Z79.899 Other long term (current) drug therapy
CPT/HCPCS: 71045; 80053; 83690; 83735; 84484; 85025; 93005

== ENCOUNTER 2024-07-11 20:18 | Emergency (ER) | payer BC ==
[2024-07-11] MEDS ORDERED: Bupivacaine HCl 0.5%/Epinephrine 1:200,000/PF 30 ml Vial ONE (21:19)
[2024-07-11] MEDS ORDERED: Lidocaine 1% w/Epinephrine 1:100K 20 ML VIAL ONE (21:19)
== END 2024-07-11 22:11 | disposition home or self-care (01) ==
LOC: MADERS 20:18
DX: K08.89 Other specified disorders of teeth and supporting structures (principal); E78.5 Hyperlipidemia, unspecified; J44.9 Chronic obstructive pulmonary disease, unspecified; F17.210 Nicotine dependence, cigarettes, uncomplicated
CPT/HCPCS: 99282